=== PATIENT | female | born 1990 | race Two or more races ===

== ENCOUNTER 2025-05-10 10:07 | Emergency (ER) | payer MEDICAID, SELFPAY ==
[2025-05-10 10:43] VITALS: PULSE 88; RESP 16; O2SAT 98; BMI 46.8
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
[2025-05-10] MEDS: IBUPROFEN TAB 400 MG TABLET PO (10:51)
[2025-05-10] MEDS: ACETAMINOPHEN 500 MG TABLET 1000 MG PO (10:51)
[2025-05-10 10:53] VITALS: BP 132/75; PULSE 90; RESP 18; TEMP 36.6; O2SAT 96
== END 2025-05-10 11:48 | disposition home or self-care (01) ==
PROVIDERS: Emergency Provider Emergency Medicine
DX: S83.91XA Sprain of unspecified site of right knee, initial encounter (principal); W10.9XXA Fall (on) (from) unspecified stairs and steps, initial encounter
CPT/HCPCS: 73562; 73590; 99283; A9270

== ENCOUNTER 2025-08-10 07:14 | Emergency (ER) | payer MEDICAID, SELFPAY ==
[2025-08-10 07:23] VITALS: BP 133/93; PULSE 80; RESP 18; TEMP 36.7; O2SAT 97
--- NOTE | 2025-08-10 07:38 | PD.EDDENTL ---
ED Dental RME/HPI General Chief complaint: Dental/Oral/Throat Stated complaint: L) MOUTH PAIN Time Seen by Provider: 08/10/25 07:20 Arrival date/time: 08/10/25 07:14 This is a 35-year-old female that comes into the emergency room with complaints of left upper teeth pain towards the back molars. Patient states she made an appointment with her dentist but they are not going to be able to see her for another week. Patient states that she has been having a lot of pain to that area. Patient has other cavities and other teeth. Patient states that she feels like the left side of her face is swollen. Patient denies fever or chills. Patient denies any other symptoms. Related Data Home Medications ?Medication ?Instructions ?Recorded ?Confirmed vit no.95-ferrous 1 tab PO QDAY 03/12/19 10/09/22 fumarate 28 mg-folic acid 800 mcg tablet () aspirin 81 mg tablet 81 mg PO QDAY 09/29/22 10/09/22 folic acid 1 mg tablet 1 mg PO DAILY 10/01/22 10/09/22 Previous Rx's ?Medication ?Instructions ?Recorded butalbital 50 mg-acetaminophen 300 1 cap PO Q4H PRN pain #4 caps 10/17/22 mg-caffeine 40 mg-codeine 30 mg cap acetaminophen 300 mg-codeine 15 mg 1 tab PO Q8H PRN pain #14 tabs 10/22/22 tablet amoxicillin 500 mg-potassium 1 tab PO Q8H #30 tabs 10/22/22 clavulanate 125 mg tablet (Augmentin) enoxaparin 40 mg/0.4 mL 40 mg (0.4 mL) subcut Q24H #8 mL 10/22/22 subcutaneous syringe (Lovenox) ferrous sulfate 325 mg (65 mg 325 mg PO BID #30 tabs 10/22/22 iron) tablet (Fely-Time) metoprolol succinate 25 mg 25 mg PO BID #30 tabs 10/22/22 tablet,extended release 24 hr acetaminophen 500 mg tablet 1,000 mg (2 x 500 mg) PO Q6H PRN 05/10/25 pain #30 tabs ibuprofen 600 mg tablet 600 mg PO Q6H PRN pain #20 tabs 05/10/25 amoxicillin-potassium clavulanate 1 tab PO BID 10 days #20 tabs 08/10/25 1,000 mg-62.5 mg tablet,ext.rel 12hr ibuprofen 800 mg tablet 800 mg PO Q6H PRN pain #14 tabs 08/10/25 Allergies Allergy/AdvReac Type Severity Reaction Status Date / Time No Known Allergies Allergy Verified 08/10/25 07:17 Review of Systems Review of Systems Systems Reviewed: All systems reviewed, normal except as documented Past Medical History Past Medical History RESPIRATORY: Positive Asthma (difficulty breathing during ) REPRODUCTIVE: Positive Previous Pregnancies ENDOCRINE: Positive Diabetes Mellitus Type 2 (gestational diabetes) PSYCHO/SOCIAL: Positive Depression and Anxiety OTHER HISTORY: Positive Hospitalization Family History FAMILY HISTORY: Positive Family Cardiac Disorders, Family Cancer and Family Surgery Surgical History SURGICAL: Positive Abdominal Surgery (c/s X3) and Section Social History SMOKING STATUS: Current every day smoker SECOND HAND EXPOSURE: Yes SUBSTANCE USE: marijuana ED Exam Narrative Physical exam: VITAL SIGNS: Reviewed. GENERAL APPEARANCE: Alert and interactive, follows commands, no acute distress HEAD AND FACE: Non-traumatic. ENT: PERRL, conjuctiva pink and clear, eyelid no trauma, Mucous membrane moist. NECK: Supple, nontender, no nuchal rigidity. CHEST: No tenderness, no crepitus, no paradoxical movement, no retractions. LUNGS: breathing even and unlabored HEART: Regular rate, cap refill less than 2 seconds ABDOMEN: Soft, nondistended, no guarding, nontender, no rebound, no masses, NEUROLOGICAL: Gross motor function intact sensory function intact, Appropriate for age. MUSCULOSKELETAL: low back nontender, full range of motion. EXTREMITIES: No redness no swelling no skin breakdown on bilateral foot and leg. Distal neurovascular status intact bilateral foot SKIN: Color pink, dry Course Quality Measures none Orders Category Date Time Status Amoxicillin/Pot Clav 875 [Augmentin 875] Med 08/10/25 07:37 Discontinued 1 tab PO X1 ONE Ibuprofen Tab [Motrin Tab] Med 08/10/25 07:37 Discontinued 800 mg PO X1 ONE Ondansetron Odt [Zofran Odt] Med 08/10/25 07:37 Discontinued 4 mg PO X1 ONE Vital Signs Vital signs: Vital Signs Temperature 98.1 F 08/10/25 07:23 Pulse Rate 80 08/10/25 07:23 Respiratory Rate 18 08/10/25 07:23 Blood Pressure 133/93 H 08/10/25 07:23 Pulse Oximetry (%) 97 08/10/25 07:23 Oxygen Delivery Method Room Air 08/10/25 07:23 Dental / Oral MDM Narrative MDM Narrative:: Patient has pain inside her mouth to her upper molars on the left side. Patient also states she started having some pain to the left side of her cheek. I did not really appreciate much swelling. No fluctuance no induration. I did explain to patient that this can be the beginning of dental abscess/cellulitis. Will treat patient with Augmentin. Patient told to come back to the emergency room if symptoms change or worsen. Will also give patient some ibuprofen for pain. Patient states she will try to get a sooner appointment with her dentist. Patient verbalized understanding and feels comfortable plan of care. Dragon dictation: Although this document has been carefully reviewed, there may still be some phonetic and other typographical errors. These errors are purely grammatical due to imperfections in the software program and should not be construed in any way to compromise the substance of the patient's medical care during this visit. Patient data External records reviewed:: [facility] previous records Clinical information provided by:: patient Social determinants that could affect healthcare access:: none Patient has the following chronic illnesses:: See note How is presenting disease/condition affected by chronic disease/condition?: no chronic disease Evaluation data The following diagnostics were reviewed and interpreted by me:: other (specify) (none ) Lab and/or radiology exams considered but not ordered:: none Interpretation Summary: see note Medications / Prescriptions Medications or Prescriptions considered but not ordered:: none Medication administrations:: Medication Administration History Discontinued Medications Amoxicillin/Clavulanate Potassium (Amoxicillin/Pot Clav 875 Tablet) 1 tab PO X1 ONE Stop: 08/10/25 07:38 Last Admin: 08/10/25 07:59 Dose: 1 tab Documented By: ANGELICA Ibuprofen (Ibuprofen Tab 400 Mg Tablet) 800 mg PO X1 ONE Stop: 08/10/25 07:38 Last Admin: 08/10/25 07:58 Dose: 800 mg Documented By: ANGELICA Ondansetron HCl (Ondansetron Odt 4 Mg Tabrap) 4 mg PO X1 ONE; Protocol Stop: 08/10/25 07:38 Last Admin: 08/10/25 07:59 Dose: 4 mg Documented By: ANGELICA See note Consultations Consultation(s) initiated? (list below): No Diagnosis Dental Differential Diagnosis: gingival abscess, dental caries, dental abscess and other (Cellulitis) Most likely diagnosis given after review of the tests above:: Early dental abscess, cellulitis Admission Indicated Admission indicated?: not indicated Admission Request Was there a request for admission?: No Disposition Plan Disposition Plan: Discharge Discharge Attestation Discharge Attestation: The patient and all family members were given an opportunity to ask questions and understood the discharge instructions. Discharge instructions specifically effects, indications for sooner follow up or return to the emergency department, and the expected course of current diagnosis. Patient condition: Stable Discharge Plan Plan Patient Disposition: HOME (Self Care) Patient condition on transfer: Stable Prescriptions/Referrals Prescriptions/Med Rec: New amoxicillin-pot clavulanate 1,000-62.5 mg tablet extended release 12 hr 1 tab PO BID 10 Days Qty: 20 0RF ibuprofen 800 mg tablet 800 mg PO Q6H PRN (Reason: pain) Qty: 14 0RF No Action PNV no.95-ferrous fumarate-FA [] 28 mg iron- 800 mcg Tablet 1 tab PO QDAY acetaminophen 500 mg tablet 1,000 mg PO Q6H PRN (Reason: pain) Qty: 30 0RF ibuprofen 600 mg tablet 600 mg PO Q6H PRN (Reason: pain) Qty: 20 0RF aspirin 81 mg Tablet 81 mg PO QDAY folic acid 1 mg tablet 1 mg PO DAILY Patient Comments: TAKE ONE TABLET BY MOUTH EVERY DAY ikonsmwuju-nouwweywrc-mid-cod [id number] mg capsule 1 cap PO Q4H PRN (Reason: pain) Qty: 4 0RF metoprolol succinate 25 mg tablet extended release 24 hr 25 mg PO BID Qty: 30 0RF amoxicillin-pot clavulanate [Augmentin] 500-125 mg tablet 1 tab PO Q8H Qty: 30 0RF enoxaparin [Lovenox] 40 mg/0.4 mL syringe 40 mg subcut Q24H Qty: 8 10RF acetaminophen-codeine 300-15 mg tablet 1 tab PO Q8H PRN (Reason: pain) Qty: 14 0RF ferrous sulfate [Fely-Time] 325 mg (65 mg iron) tablet 325 mg PO BID Qty: 30 0RF Problem List Clinical Impression: Pain, dental, Dental caries, Cellulitis Patient/Caregiver Discharge Instructions Discharge Activity: activity as tolerated Education Materials: ED Cellulitis Additional Instructions: Follow up with primary provider in 1-2 days. Come back to ED if symptoms change or worsen Print Language: Salvadorean Stand Alone Forms: Wendy Award Info., Patient Portal Info Letter PA/NIGHT WAREHOUSE MANAGER Supervising Physician PA/NIGHT WAREHOUSE MANAGER Supervising Physician: ravinder
[2025-08-10] MEDS: IBUPROFEN TAB 400 MG TABLET 800 MG PO (07:58)
[2025-08-10] MEDS: ONDANSETRON ODT 4 MG TABRAP PO (07:59)
[2025-08-10] MEDS: AMOXICILLIN/POT CLAV 875 TABLET 1 TAB PO (07:59)
== END 2025-08-10 08:03 | disposition home or self-care (01) ==
PROVIDERS: Emergency Provider Emergency Medicine; PCP Family Medicine
DX: K12.2 Cellulitis and abscess of mouth (principal); K02.9 Dental caries, unspecified
CPT/HCPCS: 99281; Q0162; A9270

== ENCOUNTER 2025-09-01 11:56 | Emergency (ER) | payer MEDICAID, SELFPAY ==
[2025-09-01 12:05] VITALS: BP 150/81; PULSE 90; RESP 20; TEMP 36.7; O2SAT 97; BMI 39.3
--- NOTE | 2025-09-01 12:16 | XR_ITS ---
Examination: CT abdomen and pelvis without contrast. Coronal 3-D reconstructions. Sagittal 2-D reconstructions. Date and time of exam: September 01, 2025, 1354 hours, comparison October 03, 2012 INDICATIONS: Right lower abdominal pain with nausea onset today CTDI: vol (mGy): 14.7 DLP: (mGycm): 862 Technique: Axial images of the abdomen have been obtained, 3 mm slice thickness Intravenous contrast material has not been administered. Low dose protocols were performed. One or more of the following dose reduction techniques were used; automated exposure control, adjustment of the mA and/or KV according to patient size, use of iterative reconstruction technique. Findings: 18 mm pulmonary nodule left lower lobe No focal liver or splenic lesion Abnormal thickening of the gallbladder wall No pancreatic mass No renal or ureteral calculi No bowel obstruction, normal appendix Lateral lower right abdominal wall hernia defect, the hernia defect is 4 cm, the defect contains small bowel but no incarcerated bowel Bladder intact The anteverted uterus, no adnexal mass Osseous structures intact IMPRESSION: Large lateral right abdominal wall hernia defect containing small bowel but no incarcerated bowel
--- NOTE | 2025-09-01 12:17 | EDRME_ITS ---
Rapid Medical Screening Exam [facility] Arrival date/time: 09/01/25 11:56 35-year-old female with a history of hypertension presents to the emergency room with a chief complaint of tenderness to her hernia in her right lower quadrant x 2 days. Patient states she has had this hernia for the last 3 days and was sent to the emergency room by her primary care provider due to not passing gas I have greeted and performed a focused initial assessment of this patient. A comprehensive ED assessment and evaluation of the patient, analysis of all test results, and completion of the medical decision making process will be conducted by additional ED providers. Chief Complaint: Abdominal Pain Time Seen by Provider: 09/01/25 12:04 Vital signs: Vital Signs Temperature 98.1 F 09/01/25 12:05 Pulse Rate 90 09/01/25 12:05 Respiratory Rate 20 09/01/25 12:05 Blood Pressure 150/81 H 09/01/25 12:05 Pulse Oximetry (%) 97 09/01/25 12:05 Oxygen Delivery Method Room Air 09/01/25 12:05 Vital signs reviewed by provider: Yes Exam: Hernia to the right lower quadrant of her abdomen. Pain with palpation Clear bilateral lung sounds Clinical Impression: Strangulated hernia/abdominal hernia
[2025-09-01 12:38] LABS: Collection Type, Urine Clean Catch
[2025-09-01 12:54] LABS: HCG Qualitative,Urine Negative
[2025-09-01 12:59] LABS: Bacteria,Urine 1+; Bilirubin,Urine Negative (Negative); Blood,Urine 1+ (Negative); Clarity,Urine Clear (Clear/Hazy); Color,Urine Lt-Yellow (Lt Yel-Yel); Glucose, Urine Negative (Negative); Ketones,Urine Negative (Negative); Leukocyte Esterase,Urine Negative (Negative); Nitrite,Urine Negative (Negative); PH,Urine 6.0 (5.0-7.0); Protein,Urine Negative (Neg - Trace); RBC,Urine 4 /hpf (0-3); Specific Gravity,Urine 1.014 (1.001-1.035); Squamous Epithelial Cell,Urine 11 /hpf (0-5); Urobilinogen,Urine Negative mg/dL (0.0-1.0); WBC,Urine 1 /hpf (0-5)
--- NOTE | 2025-09-01 13:37 | PC.NURSE ---
ct technologist could not find PT. Looked in the lobby, outside, and in lab.
[2025-09-01 14:12] LABS: Basophils # (Auto) 0.1 Thou/mm3 (0.0-0.2); Basophils % (Auto) 1 % (0-2.5); Eosinophils # (Auto) 0.2 Thou/mm3 (0.0-0.5); Eosinophils % (Auto) 3 % (0-10); Hematocrit 46.2 % (36.0-46.0); Hemoglobin 15.2 g/dL (12.0-16.0); Immature Granulocytes Auto 0.03 Thou/mm3 (0.00-0.00); Lymphocytes # (Auto) 2.7 Thou/mm3 (1.0-4.8); Lymphocytes % (Auto) 30 % (10-50); Mean Corpuscular HGB Conc 32.9 g/dl (31.0-37.0); Mean Corpuscular Hemoglobin 29.5 pg (25.0-35.0); Mean Corpuscular Volume 90 fL (80-100); Monocytes # (Auto) 0.5 Thou/mm3 (0.0-0.8); Monocytes % (Auto) 5 % (0-12); Neutrophils # (Auto) 5.6 Thou/mm3 (1.8-7.7); Neutrophils % (Auto) 62 % (37-80); Nucleated Red Blood Cell # 0.00 Thou/mm3 (0.00-0.00); Nucleated Red Blood Cell % 0 /100 WBC (0); Platelet Count 332 Thou/mm3 (140-440); RDW Standard Deviation 42.3 fL (36.4-46.3); Red Blood Count 5.16 Miln/mm3 (4.00-5.20); White Blood Count 9.1 Thou/mm3 (3.6-11.0)
[2025-09-01 14:24] LABS: Alanine Aminotransferase 11 U/L (10-49); Albumin, Serum 4.8 gm/dL (3.5-5.0); Albumin/Globulin Ratio 1.8 (1.2-2.2); Alkaline Phosphatase 75 U/L (46-116); Anion Gap 7 (7-16); Aspartate Amino Transferase 14 U/L (0-34); BUN/Creatinine Ratio 10 Ratio (12-20); Bilirubin,Total 0.3 mg/dL (0.3-1.2); Blood Urea Nitrogen 6 mg/dL (9-23); Calcium 9.3 mg/dL (8.3-10.6); Calcium (Corrected) 9.3 mg/dL (8.5-10.1); Carbon Dioxide 29.7 mMol/L (20.0-31.0); Chloride 105 mMol/L (98-107); Creatinine (Component) 0.6 mg/dL (0.6-1.3); Estimated Creatinine Clearance 152.2 mL/min (>60); Globulin 2.6 gm/dL (2.3-3.5); Glucose 97 mg/dL (74-106); Lipase 42 U/L (12-53); Osmolality,Calculated 280 (275-295); Potassium 4.0 mMol/L (3.4-5.1); Sodium 142 mMol/L (136-145); Total Protein 7.4 gm/dL (5.7-8.2); eGFR > 60 See Note
--- NOTE | 2025-09-19 10:50 | PD.EDABDPN ---
ED Abdominal Pain RME/HPI General Chief Complaint: Abdominal Pain Stated complaint: RLQ ABD PAIN, SENT BY PCP Time seen by provider: 09/01/25 12:04 Arrival date/time: 09/01/25 11:56 RME / HPI RME / HPI narrative: 09/01/25 11:56 35-year-old female with a history of hypertension presents to the emergency room with a chief complaint of tenderness to her hernia in her right lower quadrant x 2 days. Patient states she has had this hernia for the last 3 days and was sent to the emergency room by her primary care provider due to not passing gas I have greeted and performed a focused initial assessment of this patient. A comprehensive ED assessment and evaluation of the patient, analysis of all test results, and completion of the medical decision making process will be conducted by additional ED providers. DR. NGUYEN MAIN ED EVALUATION 35 year old female with history of right lower abdominal hernia presents to the ED for evaluation of right lower abdominal hernia pain beginning 2 days ago. Pain described as aching in sensation, rated as moderate. Reportedly had experienced similar pain before and advised it was due to her hernia. No other associated symptoms reported. Denies fevers, chills, sweats, redness to the area, or urinary symptoms. Exam: Hernia to the right lower quadrant of her abdomen. Pain with palpation Clear bilateral lung sounds Impression: Strangulated hernia/abdominal hernia Related Data Home Medications ?Medication ?Instructions ?Recorded ?Confirmed vit no.95-ferrous 1 tab PO QDAY 03/12/19 10/09/22 fumarate 28 mg-folic acid 800 mcg tablet () aspirin 81 mg tablet 81 mg PO QDAY 09/29/22 10/09/22 folic acid 1 mg tablet 1 mg PO DAILY 10/01/22 10/09/22 Previous Rx's ?Medication ?Instructions ?Recorded butalbital 50 mg-acetaminophen 300 1 cap PO Q4H PRN pain #4 caps 10/17/22 mg-caffeine 40 mg-codeine 30 mg cap acetaminophen 300 mg-codeine 15 mg 1 tab PO Q8H PRN pain #14 tabs 10/22/22 tablet amoxicillin 500 mg-potassium 1 tab PO Q8H #30 tabs 10/22/22 clavulanate 125 mg tablet (Augmentin) enoxaparin 40 mg/0.4 mL 40 mg (0.4 mL) subcut Q24H #8 mL 10/22/22 subcutaneous syringe (Lovenox) ferrous sulfate 325 mg (65 mg 325 mg PO BID #30 tabs 10/22/22 iron) tablet (Fely-Time) metoprolol succinate 25 mg 25 mg PO BID #30 tabs 10/22/22 tablet,extended release 24 hr acetaminophen 500 mg tablet 1,000 mg (2 x 500 mg) PO Q6H PRN 05/10/25 pain #30 tabs ibuprofen 600 mg tablet 600 mg PO Q6H PRN pain #20 tabs 05/10/25 amoxicillin-potassium clavulanate 1 tab PO BID 10 days #20 tabs 08/10/25 1,000 mg-62.5 mg tablet,ext.rel 12hr ibuprofen 800 mg tablet 800 mg PO Q6H PRN pain #14 tabs 08/10/25 Allergies Allergy/AdvReac Type Severity Reaction Status Date / Time No Known Allergies Allergy Verified 09/01/25 11:59 Review of Systems Review of Systems Systems Reviewed: All systems reviewed, normal except as documented Past Medical History Past Medical History RESPIRATORY: Positive Asthma (difficulty breathing during ) REPRODUCTIVE: Positive Previous Pregnancies ENDOCRINE: Positive Diabetes Mellitus Type 2 (gestational diabetes) PSYCHO/SOCIAL: Positive Depression and Anxiety OTHER HISTORY: Positive Hospitalization Family History FAMILY HISTORY: Positive Family Cardiac Disorders, Family Cancer and Family Surgery Surgical History SURGICAL: Positive Abdominal Surgery (c/s X3) and Section Social History SMOKING STATUS: Current every day smoker SECOND HAND EXPOSURE: Yes SUBSTANCE USE: marijuana ED Exam Narrative Physical exam: GENERAL APPEARANCE: alert and oriented x 4, well-developed, well-nourished, no acute distress HEENT: Normocephalic, atraumatic; pupils equal, round, reactive to light; EOMI; mucous membranes pink, moist; oropharynx clear NECK: Supple LUNGS: CTABL; no wheezes, no rales, no rhonchi HEART: Regular rate, regular rhythm; normal S1, S2; no murmurs ABDOMEN: non distended; normal BS; soft, there is a right lower abdominal wall hernia that is reducible, no surrounding redness, no guarding, no rebound; no masses, no organomegaly, no hernia BACK: no CVA tenderness EXTREMITIES: atraumatic; no edema NEUROLOGIC: awake; alert and oriented x4; cranial nerves II-XII grossly intact; no focal sensory or motor deficits PSYCHIATRIC: appropriate mood and affect SKIN: warm, dry, normal color; no rashes Course Quality Measures none Orders Category Date Time Status CT abdomen pelvis wo con Stat Exams 09/01/25 12:16 Completed CBC Stat Lab 09/01/25 13:34 Completed CMP [Comprehensive Metabolic Panel] Stat Lab 09/01/25 13:34 Completed HCG Qualitative,Urine Stat Lab 09/01/25 12:32 Completed Lipase Stat Lab 09/01/25 13:34 Completed UA [Urinalysis] Stat Lab 09/01/25 12:32 Completed Urine Culture Stat Lab 09/01/25 12:32 Completed Vital Signs Vital signs: Vital Signs Temperature 98.1 F 09/01/25 12:05 Pulse Rate 90 09/01/25 12:05 Respiratory Rate 20 09/01/25 12:05 Blood Pressure 150/81 H 09/01/25 12:05 Pulse Oximetry (%) 97 09/01/25 12:05 Oxygen Delivery Method Room Air 09/01/25 12:05 Pulse ox is 97% on room air which is adequate. Abdominal Pain MDM MDM Narrative MDM Narrative:: Denia Farnsworth am scribing for and in the presence of Dr. Nguyen. Patient data External records reviewed:: [facility] previous records Clinical information provided by:: patient Social determinants that could affect healthcare access:: none Patient has the following chronic illnesses:: history of right ventral hernia How is presenting disease/condition affected by chronic disease/condition?: no chronic disease Evaluation data The following diagnostics were reviewed and interpreted by me:: lab results and radiology exam(s) Lab and/or radiology exams considered but not ordered:: None Interpretation Summary: Ordering Physician: Olaf Velazco Date of Service: 09/01/25 Procedure(s): CT abdomen pelvis wo con Accession Number(s): [id number] cc: Olaf Velazco; Juan Jose Ortega MD; NO PRIMARY/FAMILY,PHYSICIAN~ Examination: CT abdomen and pelvis without contrast. Coronal 3-D reconstructions. Sagittal 2-D reconstructions. Date and time of exam: September 01, 2025, 1354 hours, comparison October 03, 2012 INDICATIONS: Right lower abdominal pain with nausea onset today CTDI: vol (mGy): 14.7 DLP: (mGycm): 862 Technique: Axial images of the abdomen have been obtained, 3 mm slice thickness Intravenous contrast material has not been administered. Low dose protocols were performed. One or more of the following dose reduction techniques were used; automated exposure control, adjustment of the mA and/or KV according to patient size, use of iterative reconstruction technique. Findings: 18 mm pulmonary nodule left lower lobe No focal liver or splenic lesion Abnormal thickening of the gallbladder wall No pancreatic mass No renal or ureteral calculi No bowel obstruction, normal appendix Lateral lower right abdominal wall hernia defect, the hernia defect is 4 cm, the defect contains small bowel but no incarcerated bowel Bladder intact The anteverted uterus, no adnexal mass Osseous structures intact IMPRESSION: Large lateral right abdominal wall hernia defect containing small bowel but no incarcerated bowel Dictated By: Juan Jose Ortega MD Signed By: <Electronically signed by Juan Jose Ortega MD in OV> 09/01/25 1426. Medications / Prescriptions Medications or Prescriptions considered but not ordered:: None Medication administrations:: None Consultations Consultation(s) initiated? (list below): No Diagnosis Differential diagnosis abdominal pain: abdominal pain, constipation and small bowel obstruction Most likely diagnosis given after review of the tests above:: Abdominal pain Abdominal wall hernia Admission Indicated Admission indicated?: not indicated Admission Request Was there a request for admission?: No Disposition Plan Disposition Plan: Discharge Discharge Attestation Discharge Attestation: The patient and all family members were given an opportunity to ask questions and understood the discharge instructions. Discharge instructions specifically effects, indications for sooner follow up or return to the emergency department, and the expected course of current diagnosis. Patient condition: Stable Discharge Plan Plan Patient Disposition: HOME (Self Care) Prescriptions/Referrals Prescriptions/Med Rec: No Action PNV no.95-ferrous fumarate-FA [] 28 mg iron- 800 mcg Tablet 1 tab PO QDAY acetaminophen 500 mg tablet 1,000 mg PO Q6H PRN (Reason: pain) Qty: 30 0RF ibuprofen 600 mg tablet 600 mg PO Q6H PRN (Reason: pain) Qty: 20 0RF amoxicillin-pot clavulanate 1,000-62.5 mg tablet extended release 12 hr 1 tab PO BID 10 Days Qty: 20 0RF ibuprofen 800 mg tablet 800 mg PO Q6H PRN (Reason: pain) Qty: 14 0RF aspirin 81 mg Tablet 81 mg PO QDAY folic acid 1 mg tablet 1 mg PO DAILY Patient Comments: TAKE ONE TABLET BY MOUTH EVERY DAY otaprkvvdb-[id number]-cod [id number] mg capsule 1 cap PO Q4H PRN (Reason: pain) Qty: 4 0RF metoprolol succinate 25 mg tablet extended release 24 hr 25 mg PO BID Qty: 30 0RF amoxicillin-pot clavulanate [Augmentin] 500-125 mg tablet 1 tab PO Q8H Qty: 30 0RF enoxaparin [Lovenox] 40 mg/0.4 mL syringe 40 mg subcut Q24H Qty: 8 10RF acetaminophen-codeine 300-15 mg tablet 1 tab PO Q8H PRN (Reason: pain) Qty: 14 0RF ferrous sulfate [Fely-Time] 325 mg (65 mg iron) tablet 325 mg PO BID Qty: 30 0RF Referrals: No Primary/Family,Physician [Primary Care Provider] - In 1 week Nida Friedman MD [Physician, General Surgery] Problem List Clinical Impression: Abdominal pain, Abdominal wall hernia Patient/Caregiver Discharge Instructions Education Materials: ED Hernia (Adult) Additional Instructions: Follow up for consult with surgery regarding possible repair of hernia. Call office for appointment. Print Language: [employer] Stand Alone Forms: Wendy Award Info., Patient Portal Info Letter
== END 2025-09-01 17:05 | disposition home or self-care (01) ==
PROVIDERS: Nurse Practitioner Family; Emergency Provider Emergency Medicine
DX: K43.9 Ventral hernia without obstruction or gangrene (principal)
CPT/HCPCS: 36415; 74176; 80053; 81001; 81025; 83690; 85025; 87086; 99283